=== PATIENT | male | born 1960 | race Two or more races ===

== ENCOUNTER 2024-08-27 03:26 | Emergency (ER) | payer OTHER ==
[~2024-08-27] VITALS: Ht 175.3 cm; Wt 77.1 kg
[2024-08-27] MEDS ORDERED: GLUMETZA500 MG (03:33)
[2024-08-27] MEDS ORDERED: ALTACE1.25 MG (03:33)
[2024-08-27] MEDS ORDERED: CARVEDILOL12.5 MG (03:33)
[2024-08-27] MEDS ORDERED: [UNRECOGNIZED DRUG - OTHER] (03:33)
[2024-08-27] MEDS ORDERED: RINGERS SOLUTION,LACTATED 1,000 ML IV STA (04:06)
[2024-08-27] MEDS ORDERED: METOCLOPRAMIDE HCL 5 MG/ML VIAL IM STA (04:07)
[2024-08-27] MEDS ORDERED: FAMOtidine 10 MG/ML (4ML VIAL) IV PUSH STA (04:08)
[2024-08-27] MEDS ORDERED: DIPHENOXYLATE HCL/ATROPINE 1 UDTAB TABLET PO STA (04:08)
[2024-08-27] MEDS ORDERED: HYOSCYAMINE SULFATE 0.125 MG TAB.SUBL SL ONE (04:15)
[2024-08-27 04:40] LABS: HEMATOCRIT 44.7 % (39.0-48.0); HEMOGLOBIN 15.2 g/dL (13-16.00); MEAN CELL VOLUME 85.5 fL (80.0-100.00); MEAN CORPUSCULAR HEMOGLOBIN 29.1 pg (27.00-32.0); MEAN CORPUSCULAR HGB CONC 34.1 g/dl (32.0-36.0); RED BLOOD COUNT 5.22 M/uL (4.00-6.00); RED CELL DISTRIBUTION WIDTH 14.4 % (11.5-14.5)
[2024-08-27 04:45] LABS: PLATELET COUNT 118 K/uL (150-450)
[2024-08-27 05:17] LABS: ALBUMIN 3.2 gm/dL (3.4-5.0); BILIRUBIN TOTAL 0.77 mg/dL (0.3-1.2); CALCIUM 8.6 mg/dL (8.5-10.1); CREATININE SERUM 0.95 mg/dL (0.70-1.30); GFR 79.32; GLOBULINA 3.4 G/DL (2.4-3.5); POTASSIUM 3.34 mEq/L (3.5-5.1); TOTAL PROTEIN 6.6 gm/dL (6.4-8.2)
== END 2024-08-27 07:20 | disposition home or self-care (01) ==
LOC: ER 03:28
DX: K52.9 Noninfective gastroenteritis and colitis, unspecified (principal); R11.10 Vomiting, unspecified
CPT/HCPCS: 36415; 74022; 74176; 96365; 96372; 99284; J2765; J3490